=== PATIENT | male | born 1985 | race Caucasian/White ===

== ENCOUNTER 2017-02-02 14:46 | Emergency (ER) | payer OTHER ==
[2017-02-02 15:10] VITALS: BP 134/63
[2017-02-02] MEDS ORDERED: Diphtheria,Pertussis(Acell),Tetanus Vaccine 0.5 ML SDV IM ONE (15:34)
[2017-02-02] MEDS ORDERED: Lidocaine 1% 20 ML MDV INJECT ONE (15:34)
--- NOTE | 2017-02-02 15:36 | EDM.PDOC ---
ED HPI GENERAL MEDICAL PROBLEM - General Chief Complaint: Laceration Stated Complaint: RIGHT HAND CUT FROM JET SKI Time Seen by Provider: 02/02/17 15:30 Source of Information: Reports: Patient History Limitations: Reports: No Limitations - History of Present Illness INITIAL COMMENTS - FREE TEXT/NARRATIVE: Corey is a 31 year old otherwise healthy male who presents to the ED today after sustaining a right hand laceration, got hand pinched between jet ski and trailer. DT is not up to date. Patient denies any other injuries. Onset: Today - Related Data Allergies Allergy/AdvReac Type Severity Reaction Status Date / Time No Known Allergies Allergy Verified 02/02/17 15:12 Home Meds: Home Meds NK [No Known Home Meds] 02/02/17 [History] Past Medical History - Past Health History Medical/Surgical History: Denies Medical/Surgical History Social & Family History - Tobacco Use Smoking Status *Q: Current Some Day Smoker Years of Tobacco use: 10 Packs/Tins Daily: 0.2 ED ROS GENERAL - Review of Systems Review Of Systems: ROS reveals no pertinent complaints other than HPI. ED EXAM, SKIN/RASH Exam: See Below Exam Limited By: No Limitations General Appearance: Alert, WD/WN, No Apparent Distress Respiratory/Chest: No Respiratory Distress Cardiovascular: Regular Rate, Rhythm Peripheral Pulses: 2+: Radial (L) Extremities: Normal Inspection, Normal Range of Motion. No: Mottled, Pallor Neurological: Alert, Oriented, CN II-XII Intact Psychiatric: Normal Affect, Normal Mood Skin: Warm, Dry, Other (1 cm superficial laceration to right proximal hand near 5th metacarpation region, proximal, no tendon involvment, full CMS intact, full rom, strength is 5/5) Location, Skin: Upper Extremity, Right ED SKIN PROCEDURES - Laceration/Wound Repair Right Hand Appearance: Superficial Distal NVT: Neuro & Vascular Intact, No Tendon Injury Anesthetic Type: Local Local Anesthesia - Lidocaine (Xylocaine): 1% Plain Local Anesthetic Volume: 4cc Skin Prep: Chlorhexidine (Hibiciens), Saline Exploration/Debridement/Repair: Wound Explored, No Foreign Material Found Closed with: Sutures Suture Size: other (5-0) # of Sutures: 4 Suture Type: Prolene Course - Vital Signs Last Recorded V/S: Last Vital Signs Temp 36.6 C 02/02/17 15:17 Pulse 69 02/02/17 15:17 Resp 18 02/02/17 15:17 BP 134/63 02/02/17 15:17 Pulse Ox 94 L 02/02/17 15:17 Corey is a 31 year old male, presents to the ED today after sustaining a right hand laceration. DT updated while in ED, suture repair done as noted above, wound care discussed, suture removal in 7 days. Return to the ED with any complications. Patient can take ibuprofen as needed. Patient agreeable and discharged in stable condition. - Orders/Labs/Meds Orders: Active Orders 24 hr Category Date Time Status Vaccines to be Administered [RC] PER UNIT ROUTINE Care 02/02/17 15:34 Ordered Meds: Medications Discontinued Medications Generic Name Dose Route Start Last Admin Trade Name Shaila PRN Reason Stop Dose Admin Diphtheria/Tetanus/Acell Pertussis 0.5 ml 02/02/17 15:34 Adacel IM 02/02/17 15:35 .ONCE ONE Lidocaine HCl 20 ml 02/02/17 15:34 Xylocaine 1% INJECT 02/02/17 15:35 ONETIME ONE Departure - Departure Time of Disposition: 16:15 Disposition: Home, Self-Care 01 Condition: Good Clinical Impression: Laceration of hand Qualifiers: Encounter type: initial encounter Foreign body presence: without foreign body Laterality: right Qualified Code(s): S61.411A - Laceration without foreign body of right hand, initial encounter - Discharge Information Instructions: Laceration Care, Adult, [id number], Stitches, Teresa, or Adhesive Wound Closure, [id number] Forms: ED Department Discharge Additional Instructions: Keep wound clean and dry. Ibuprofen for pain. Bacitracin twice daily for 3 days. Sutures removed in 7 days. - My Orders Last 24 Hours: My Active Orders 02/02/17 15:34 Vaccines to be Administered [RC] PER UNIT ROUTINE - Assessment/Plan Last 24 Hours: My Active Orders 02/02/17 15:34 Vaccines to be Administered [RC] PER UNIT ROUTINE
[2017-02-02] MEDS ORDERED: Bacitracin Oint 1 GM U/D Packet TOP ONE (15:56)
== END 2017-02-02 16:08 | disposition home or self-care (01) ==
LOC: JP.ED 14:46
DX: S61.411A Laceration without foreign body of right hand, initial encounter (principal); F17.210 Nicotine dependence, cigarettes, uncomplicated; Z23 Encounter for immunization; W23.1XXA Caught, crushed, jammed, or pinched between stationary objects, initial encounter
CPT/HCPCS: 12001; 90471; 90715; 99283-25